=== PATIENT | male | born 1970 | race Caucasian/White ===

== ENCOUNTER → 2016-06-17 | Outpatient (CLI) | payer BC ==
[~2016-06-17] MED LIST: VALIUM 5MG T5 MG/TAB PO
== END ==
LOC: COL.RAD 14:14
DX: M75.112 Incomplete rotator cuff tear or rupture of left shoulder, not specified as traumatic (principal); M75.82 Other shoulder lesions, left shoulder; M19.012 Primary osteoarthritis, left shoulder
CPT/HCPCS: A9585; Q9967

== ENCOUNTER → 2016-08-10 | Outpatient (CLI) | payer BC | LOC: COL.RAD 07:59 | DX: M16.12 Unilateral primary osteoarthritis, left hip (principal); M25.852 Other specified joint disorders, left hip | CPT/HCPCS: J3301; Q9967 ==

== ENCOUNTER → 2017-02-07 | Outpatient (CLI) | payer BC | LOC: COL.RAD 08:28 | DX: M25.552 Pain in left hip (principal); M16.12 Unilateral primary osteoarthritis, left hip; M94.8X8 Other specified disorders of cartilage, other site | CPT/HCPCS: A9585; Q9967 ==